=== PATIENT | female | born 1945 | race Caucasian/White ===

== ENCOUNTER 2021-08-18 12:33 | Day surgery (SDC) | payer MEDICARE, OTHER ==
[~2021-08-18] VITALS: Ht 157.5 cm; Wt 56.0 kg
[~2021-08-18 12:33] MED LIST: IRON18 MG PO; KELP150 MC1 PO; MULTI VITAMIN1 EACH PO
--- NOTE | 2021-08-18 16:36 | NUR ---
08/18/21 1636 Estela Hdez 1620 PT ARRIVED IN PACU SLEEPY WITH NO C/O'S. ABD SOFT. 1630 DR AT BEDSIDE. 1635 PT RESTING. REU.
--- NOTE | 2021-08-19 10:34 | OR ---
[facility] [address] [place], [place] [address] Signed DATE OF OPERATION: 08/18/2021 SURGEON: Judy Rodriguez MD PREOPERATIVE DIAGNOSES: 1. Chronic diarrhea. 2. Family history of colon cancer (half-sister). POSTOPERATIVE DIAGNOSIS: Normal-appearing colon. PROCEDURE: Total colonoscopy to cecum with biopsy of sigmoid and rectum. ANESTHESIA: Intravenous sedation, fentanyl 150 mcg and Versed 4 mg. INDICATION: A 75-year-old white woman, patient of HERMAN Allen, who complains of diarrhea, but no associated bleeding. She has family history of colon cancer in a half-sister. Previous colonoscopy in 2006. She is admitted at this time to undergo colonoscopy to assess cause of diarrhea and on the basis of family history of colon cancer, understands the risks of bleeding, infection, perforation, and findings. Prep was excellent. Complete colonoscopy was undertaken to the cecum. Passage to the sigmoid was challenging on the basis of angulation deformity, but was otherwise safely accomplished. There was no specific finding to account for symptoms. Biopsies were taken of the sigmoid and rectum to assess for occult colitis. DESCRIPTION OF PROCEDURE: The patient was brought to the endoscopy suite and placed in the lateral decubitus position, given intravenous sedation to the point of slurred speech and nystagmus. Digital rectal examination was normal. An Olympus video colonoscope was passed in the rectum and manipulated throughout the colon. Passage to the mid sigmoid and left area was rather challenging. On the basis of that, prolonged passage was noted. There was no injury associated with passage, however. The scope was ultimately passed to the cecum. The ileocecal valve and appendiceal orifice were found to be normal. Scope was withdrawn from that point and examination throughout showed no sign of abnormality. Biopsies were taken in the sigmoid and in the rectum to assess for occult colitis. Some internal hemorrhoidal changes were noted. The scope was removed. The patient was taken to the recovery room in good condition. Electronically Signed By: JUDY RODRIGUEZ MD 08/19/21 1034 PATIENT NAME: LUIS DUMONT OPERATIVE REPORT DATE OF : 45 REPORT #: [id number] PHYSICIAN: JUDY RODRIGUEZ MD PCP: KATHY BLANCAS REPORT IS CONFIDENTIAL AND NOT TO BE RELEASED WITHOUT AUTHORIZATION [address] [address] Signed CONCLUDING DIAGNOSIS: Normal-appearing colon. PLAN: We will check pathology to assess for occult colitis (collagenous colitis, etc.) We would recommend fiber supplement or a high-fiber diet as to control mechanism for diarrhea. If ineffective, re-evaluate for consideration of other measures. MD MILADIS Garcia/SIERRAL /[id number] cc: HERMAN Allen Copies: KATHY BLANCAS ~ Electronically Signed By: JUDY RODRIGUEZ MD 08/19/21 1034 PATIENT NAME: LUIS DUMONT OPERATIVE REPORT DATE OF : 45 REPORT #: [id number] PHYSICIAN: JUDY RODRIGUEZ MD PCP: KATHY BLANCAS REPORT IS CONFIDENTIAL AND NOT TO BE RELEASED WITHOUT AUTHORIZATION
--- NOTE | 2021-08-20 13:44 | PATH ---
[facility] [address] [place], [place] [address] Signed SPECIMEN(S): A SIGMOID BIOPSY SPECIMEN(S): B RECTAL BIOPSY SPECIMEN SOURCE: A. SIGMOID BIOPSY B. RECTAL BIOPSY CLINICAL HISTORY: Colonoscopy. Pre: History of diarrhea, family history of colon cancer. Post: Normal. FINAL PATHOLOGIC DIAGNOSIS: A. Colon, sigmoid, biopsy: - Colonic mucosa with melanosis coli. - Negative for active, chronic, or microscopic colitis. - Negative for dysplasia or carcinoma. B. Rectum, biopsy: - Rectal mucosa with no histopathologic abnormality. - Negative for active, chronic, or microscopic colitis. - Negative for dysplasia or carcinoma. NAL:cml:C2NR MICROSCOPIC EXAMINATION: Histologic sections of all submitted blocks are examined by light microscopy. These findings, together with the gross examination, support the pathologic diagnosis. GROSS DESCRIPTION: Two specimens are received in two containers, labeled "RG." A. The specimen, labeled "RG, 1," and designated on the requisition "sigmoid," is received in formalin and consists of three ennis soft tissue fragments that measure 0.3 cm in greatest dimension. The specimen is entirely submitted in cassette (A1). B. The specimen, labeled "RG, 2," and designated on the requisition "rectal," is received in formalin and consists of two ennis soft tissue fragments that measure 0.3 cm in greatest dimension. The specimen is entirely submitted in cassette (B1). AT (under the direct supervision of a pathologist) The Gross Description was prepared using a voice recognition system. The report was reviewed for accuracy; however, sound-alike word errors, addition and/or deletions may occur. If there is any PATIENT NAME: LUIS DUMONT PATHOLOGY DATE OF : 45 REPORT #: [id number] PHYSICIAN: JACQUELYN GABRIEL PCP: KATHY BLANCAS REPORT IS CONFIDENTIAL AND NOT TO BE RELEASED WITHOUT AUTHORIZATION [facility] [address] [place] [address] Signed question about this report, please contact Client Services. PERFORMING LABORATORY: The technical component was performed [place] [address] ([employer]: Oneida Rodríguez MD; CLIA# [id number]) Professional interpretation was performed by [employer] [facility], [address] [address] (CLIA# [id number]). Diagnostician: Melany Garland MD Pathologist Electronically Signed 08/20/2021 Copies: ~ PATIENT NAME: LUIS DUMONT PATHOLOGY DATE OF : 45 REPORT #: [id number] PHYSICIAN: JACQUELYN GABRIEL PCP: KATHY BLANCAS REPORT IS CONFIDENTIAL AND NOT TO BE RELEASED WITHOUT AUTHORIZATION
== END 2021-08-18 17:00 | disposition home or self-care (01) ==
LOC: DS 12:33 → OPS 12:33 → DS 14:00 → OPS 14:00
PROVIDERS: ATTEND Surgery
PROC: 0DBE8ZZ Excision of Large Intestine, Via Natural or Artificial Opening Endoscopic (ICD-10-PCS; principal; 2021-08-18 14:00)
DX: K52.9 Noninfective gastroenteritis and colitis, unspecified (principal); K64.8 Other hemorrhoids; K63.89 Other specified diseases of intestine; Z80.0 Family history of malignant neoplasm of digestive organs; Z85.828 Personal history of other malignant neoplasm of skin
CPT/HCPCS: 99153; G0500; J2250; J3010; J7121

== ENCOUNTER 2022-11-13 08:20 | Emergency (ER) | payer MEDICARE, OTHER ==
[~2022-11-13] VITALS: Ht 157.5 cm; Wt 55.8 kg
[2022-11-13 10:17] VITALS: BP 149/61
== END 2022-11-13 10:17 | disposition home or self-care (01) ==
LOC: ED 08:20
DX: S93.402A Sprain of unspecified ligament of left ankle, initial encounter (principal); X50.1XXA Overexertion from prolonged static or awkward postures, initial encounter; Z79.899 Other long term (current) drug therapy
CPT/HCPCS: 73610